=== PATIENT | female | born 1930 | race Caucasian/White ===

== ENCOUNTER 2017-04-23 13:53 | Emergency (ER) | payer MEDICARE ==
[2017-04-23] MEDS ORDERED: MECLIZINE 12.5 MG TABLET PO STA (14:26)
--- NOTE | 2017-04-23 14:30 | ED Physician Documentation ---
History of Present Illness - Stated complaint Stated Complaint: DIZZY/WEAKNESS - Chief complaint Chief Complaint: Neuro - Additonal information Additional information: hx from pt 86 female has felt weak and shaky for several days getting worse today after lunch was weak and off balance - diff walking has to hold the wall and furniture no ALVARADO no CP no AP no fever cough NVD urinary sx takes no meds beyond daily asa diff to determine time sx started seems gradual for several days but balance acutely worse today, maybe about 1 PM s when she tried to walk and noticed Review of Systems Constitutional: reports: Fatigue. denies: Fever, Chills Throat: denies: Sore throat Cardiac: denies: Chest pain / pressure, Palpitations Respiratory: denies: Dyspnea GI: denies: Abdominal Pain, Vomiting : denies: Dysuria Neurologic: reports: Generalized weakness, Other (off balance) Endocrine: denies: Easy bruising / bleeding Immunocompromised: denies: Immunocompromised PD PAST MEDICAL HISTORY - Past Medical History Past Medical History: No Cardiovascular: None Respiratory: None Endocrine/Autoimmune: None GI: None : None HEENT: Other Psych: None Musculoskeletal: None Derm: None - Past Surgical History General: Appendectomy /SCRIPT GIRL: section HEENT: Other - Present Medications Home Medications: Ambulatory Orders Medication Instructions Recorded Confirmed Aspirin [Aspir 81] 81 mg ORAL DAILY 06/08/14 04/23/17 Meclizine [Antivert] 25 mg PO Q6H PRN #20 tablet 04/23/17 - Allergies Allergies/Adverse Reactions: Allergies Allergy/AdvReac Type Severity Reaction Status Date / Time No Known Drug Allergies Allergy Verified 04/23/17 13:59 - Social History Does the pt smoke?: No Smoking Status: Never smoker PD ED PE NORMAL - Vitals Vital signs reviewed: Yes - General General: Alert and oriented X 3 - HEENT HEENT: PERRL, EOMI (nystagmus looking right), Ears normal - Cardiac Cardiac: RRR - Respiratory Respiratory: No respiratory distress, Clear bilaterally - Abdomen Abdomen: Soft, Non tender - Derm Derm: Normal color, Other (mild eczema) - Neuro Neuro: Alert and oriented X 3, 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 not encroaching on Ps ) Ischemia: Normal ST segments - Labs Labs: Laboratory Tests 04/23/17 04/23/17 04/23/17 14:20 14:20 14:20 WBC 6.1 RBC 4.39 Hgb 14.4 Hct 42.4 MCV 96.6 MCH 32.8 H MCHC 34.0 RDW 13.0 Plt Count 202 MPV 8.2 Neut # 3.8 Lymph # 1.8 Whitman # 0.4 Eos # 0.1 Baso # 0.0 Absolute Nucleated RBC 0.00 Nucleated RBC % 0.0 Sodium 140 Potassium 3.3 L Chloride 99 L Carbon Dioxide 26 Anion Gap 15.0 H BUN 13 Creatinine 0.8 Estimated GFR (MDRD) 68 L Glucose 109 H Lactic Acid Calcium 10.0 Troponin I < 0.04 Urine Color Urine Clarity Urine pH Ur Specific Maidens Urine Protein Urine Glucose (UA) Urine Ketones Urine Occult Blood Urine Nitrite Urine Bilirubin Urine Urobilinogen Ur Leukocyte Esterase Ur Microscopic Review Urine Culture Comments Influenza A (Rapid) Influenza B (Rapid) Influenza Types A,B Ag 04/23/17 04/23/17 04/23/17 14:42 14:44 15:15 WBC RBC Hgb Hct MCV MCH MCHC RDW Plt Count MPV Neut # Lymph # Whitman # Eos # Baso # Absolute Nucleated RBC Nucleated RBC % Sodium Potassium Chloride Carbon Dioxide Anion Gap BUN Creatinine Estimated GFR (MDRD) Glucose Lactic Acid 2.3 H Calcium Troponin I Urine Color YELLOW Urine Clarity CLEAR Urine pH 5.0 Ur Specific Ma[place] >=1.030 H Urine Protein NEGATIVE Urine Glucose (UA) NEGATIVE Urine Ketones TRACE Urine Occult Blood NEGATIVE Urine Nitrite NEGATIVE Urine Bilirubin NEGATIVE Urine Urobilinogen 0.2 (NORMAL) Ur Leukocyte Esterase NEGATIVE Ur Microscopic Review NOT INDICATED Urine Culture Comments NOT INDICATED Influenza A (Rapid) Negative Influenza B (Rapid) Negative Influenza Types A,B Ag - PD MEDICAL DECISION MAKING - ED course ED course: elderly pt with weakness shaking and balance issues ddx included infection, CVA, inner ear , anemia, lyte abn etc got labs, UA and CXR and cultures to eval for infection, and CTH CTH neg CXR flu swabs and UA neg for infection - lactate slightly elev but as no infection was found to be present so do not think this is relevant after all nl lytes not anemic sx completely resolved with meclizine doubt sepsis would resolve with meclizine - do not think lactate needs to be pursued further could have been TIA but sx had been progressive for days and then abruptly resolved with meclizine - so feel unlikely to be a TIA - she is NSR CTH neg - given resolved sx and now low suspicion for TIA do not feel needs admit for echo MRI carotids etc will dc with more meclizine and PMD follow up Departure - Departure Disposition: 01 Home, Self Care Clinical Impression: Dizziness Condition: Good Instructions: ED Vertigo Unspecified Follow-Up: Velma Monroy MD [Primary Care Provider] - Prescriptions: Meclizine [Antivert] 25 mg PO Q6H PRN #20 tablet PRN Reason: Dizziness Comments: Your tests look very reassuring The CT of your brain was fine There was no urine infection, no pneumonia, no influenza Your electrolytes and blood count were fine. There are cultures running to be sure there is no blood stream infection but right now that seems unlikely Since you are feeling better with the meclizine medication we gave you in the ER and can walk now, I think it is safe for you to go home with more of the same medication. I would like you to stay with family for a day or two just is case you feel unsteady and need extra help. And please consider using a walker for extra stability until the dizziness has passed. Please follow up with your PMD for a recheck Friday if possible Discharge Date/Time: 04/23/17 17:41 NIHSS - Time Time: 02:20 - Level of Consciousness Level of consciousness: (0) Alert, Keenly responsive LOC Questions: (0) Answers both Q's correct LOC Commands: (0) Performs both correctly - Gaze Best Gaze: (0) Normal (with nystagmus and dizziness looking right) - Visual Visual: (0) No loss - Facial Palsy Facial Palsy: (0) Normal, symmetrical movement - Motor Arms (both separate) Motor Arm (right): (0) No drift Motor Arm (left): (0) No drift - Motor Legs (both separate) Motor Leg (right): (0) No drift Motor Leg (left): (0) No drift - Limb Ataxia Limb Ataxia: (0) Absent - Sensory Sensory: (0) Normal - Best Language Best Language: (0) No aphasia - Dysarthria Dysarthria: (0) Normal - Extinction and Inattention (formally neg Extinction and inattention: (0) No abnormality - Total Score/Results Total Score/Result: 0
[2017-04-23 14:31] LABS: BASOPHILS % (AUTO) 0.5 %; EOSINOPHILS # (AUTO) 0.1 10^3/uL (0.0-0.7); EOSINOPHILS % (AUTO) 2.3 %; HGB - HEMOGLOBIN 14.4 g/dL (12.0-16.0); LYMPHOCYTES # (AUTO) 1.8 10^3/uL (1.5-3.5); LYMPHOCYTES % (AUTO) 29.3 %; MEAN CORPUSCULAR HEMOGLOBIN 32.8 pg (27.0-31.0); MEAN CORPUSCULAR VOLUME 96.6 fL (81.0-99.0); MEAN PLATELET VOLUME 8.2 fL (7.9-10.8); MONOCYTES # (AUTO) 0.4 10^3/uL (0.0-1.0); NEUTROPHILS # (AUTO) 3.8 10^3/uL (1.5-6.6); NEUTROPHILS % (AUTO) 61.9 %; PLT - PLATELET COUNT 202 10^3/uL (130-450); RED BLOOD COUNT 4.39 10^6/uL (4.20-5.40); WHITE BLOOD COUNT 6.1 x10^3/uL (4.8-10.8)
[2017-04-23 14:39] LABS: CREATININE 0.8 mg/dL (0.4-1.0)
[2017-04-23 14:46] LABS: BILIRUBIN,URINE NEGATIVE (NEGATIVE); GLUCOSE, URINE (UA) NEGATIVE (NEGATIVE); KETONES,URINE (UA) TRACE mg/dL (NEGATIVE); LEUKOCYTE ESTERASE, URINE NEGATIVE (NEGATIVE); NITRITE,URINE NEGATIVE (NEGATIVE); OCCULT BLOOD,URINE NEGATIVE (NEGATIVE); PROTEIN,URINE NEGATIVE (NEGATIVE); UROBILINOGEN,URINE 0.2 (NORMAL) E.U./dL (NORMAL)
[2017-04-23 14:51] LABS: CLARITY,URINE CLEAR (CLEAR)
--- NOTE | 2017-04-23 15:15 | XRAY Preliminary Report ---
Exam: XR CHEST 2 VIEW X-RAY IMPRESSION: No acute cardiopulmonary disease seen. [facility] SITE ID: [id number]
--- NOTE | 2017-04-23 15:16 | XRAY Report ---
EXAM: CHEST RADIOGRAPHY EXAM DATE: 04/23/2017 03:00 PM. CLINICAL HISTORY: Weak and shaky. COMPARISON: None. TECHNIQUE: 2 views. FINDINGS: Lungs/Pleura: No focal opacities evident. No pleural effusion. No pneumothorax. Hyperexpanded lungs. Mediastinum: Heart and mediastinal contours are unremarkable. IMPRESSION: No acute cardiopulmonary disease seen. [facility] Referring Provider Line: [phone] SITE ID: [id number]
--- NOTE | 2017-04-23 15:22 | CT Preliminary Report ---
Exam: CT HEAD W/O IMPRESSION: Generalized age-related cortical atrophic changes without evidence of acute intracranial abnormality. [facility] SITE ID: [id number]
--- NOTE | 2017-04-23 15:23 | CT Report ---
EXAM: CT HEAD EXAM DATE: 04/23/2017 03:06 PM. CLINICAL HISTORY: Vertigo, weakness, loss of balance since earlier today after a nap. COMPARISON: None. TECHNIQUE: Multiaxial CT images were obtained from the foramen magnum to the vertex. Reformats: Coron al. IV contrast: None. In accordance with CT protocol optimization, one or more of the following dose reduction techniques w ere utilized for this exam: automated exposure control, adjustment of mA and/or KV based on patient s ize, or use of iterative reconstructive technique. FINDINGS: Parenchyma: No intraparenchymal hemorrhage. No evidence of mass, midline shift, or CT findings of acu te infarction. Poon-white differentiation is distinct. 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 Extraaxial Spaces: Normal for age. No subdural or epidural collections identified. Ventricles: The ventricles and cortical sulci are enlarged, consistent with age-related tissue loss. Sinuses and orbits: Imaged paranasal sinuses, orbits, and mastoids show no significant abnormality. Bones: No evidence of fracture or calvarial defect. Other: None. IMPRESSION: Generalized age-related cortical atrophic changes without evidence of acute intracranial abnormality. [facility] Referring Provider Line: [phone] SITE ID: [id number]
[2017-04-23 17:40] VITALS: BP 130/90
== END 2017-04-23 17:41 | disposition home or self-care (01) ==
LOC: ED 13:53
DX: R42 Dizziness and giddiness (principal); Z79.82 Long term (current) use of aspirin
CPT/HCPCS: 36415; 70450; 71046; 80048; 81003; 83605; 84484; 85025; 87040; 87275; 87276; 93005; 99284; A9270; 81001; 87086

== ENCOUNTER 2018-06-03 11:42 | Outpatient (CLI) | payer MEDICARE | END 2018-06-03 11:43 | disposition home or self-care (01) | LOC: LAB 11:42 | PROVIDERS: ATTEND Internal Medicine | DX: Z53.9 Procedure and treatment not carried out, unspecified reason (principal) | CPT/HCPCS: 36415; 80053; 81001; 81003; 83880; 84439; 84443; 85025; 87086 ==